=== PATIENT | male | born 1980 | race Hispanic/Latino ===

== ENCOUNTER 2023-10-12 00:41 | Emergency (ER) | payer BC ==
[~2023-10-12] VITALS: Ht 177.8 cm; Wt 98.4 kg
[2023-10-12 01:18] LABS: APPEARANCE,URINE CLEAR (CLEAR); BILIRUBIN,URINE NEGATIVE (NEGATIVE); COLOR,URINE LIGHT-YELLOW (YELLOW); GLUCOSE, URINE (UA) NEGATIVE (NEGATIVE); KETONES,URINE NEGATIVE (NEGATIVE); LEUKOCYTE ESTERASE ,URINE NEGATIVE Leu/uL (NEGATIVE); NITRATE,URINE NEGATIVE (NEGATIVE); OCCULT BLOOD,URINE NEGATIVE (NEGATIVE); PH,URINE 5.5 (5.0-8.0); PROTEIN,URINE 20 mg/dL (NEGATIVE); UROBILINOGEN,URINE 0.2 mg/dL (0.2-1.0)
[2023-10-12 01:22] LABS: ADD UA MICROSCOPIC YES
[2023-10-12 01:23] LABS: BACTERIA,URINE None Seen /HPF (None Seen); RBC,URINE 0-1 /HPF (0-1); SQUAMOUS EPITHELIAL CELL,UR Rare /HPF (0-2)
[2023-10-12 01:24] LABS: MUCUS,URINE Rare LPF (None Seen)
[2023-10-12 01:31] LABS: BASOPHILS # (AUTO) 0.08 K/uL (0.00-0.20); BASOPHILS % (AUTO) 0.6 % (0.0-5.0); EOSINOPHILS # (AUTO) 0.24 K/uL (0.00-0.70); EOSINOPHILS % (AUTO) 1.7 % (0.0-8.0); HEMATOCRIT 51.6 % (42-54); IMMATURE GRANULOCYTE ABSOLUTE 0.05 K/uL (0-1); LYMPHOCYTES # (AUTO) 1.7 K/uL (1.0-4.8); LYMPHOCYTES % (AUTO) 11.6 % (21.0-51.0); MEAN CORPUSCULAR HEMOGLOBIN 29.9 pg (27.0-33.0); MEAN CORPUSCULAR HGB CONC 34.1 g/dL (32.0-36.0); MEAN CORPUSCULAR VOLUME 87.8 fL (79-99); MONOCYTES # (AUTO) 1.1 K/uL (0.1-1.0); MONOCYTES % (AUTO) 7.9 % (3.0-13.0); NEUTROPHILS # (AUTO) 11.2 K/uL (1.8-7.7); NEUTROPHILS % (AUTO) 77.9 % (40.0-77.0); PLATELET COUNT (AUTO) 362 K/uL (130-400); RED BLOOD CELL COUNT(AUTO) 5.88 MIL/uL (4.50-6.20); RED CELL DISTRIBUTION WIDTH 11.9 % (11.0-15.5); WHITE BLOOD COUNT (AUTO) 14.3 K/uL (4.8-10.8)
[2023-10-12 01:44] LABS: CREATININE 1.5 mg/dL (0.5-1.3); POTASSIUM 3.6 mmol/L (3.5-5.1)
[2023-10-12 02:18] LABS: ALBUMIN 4.4 g/dL (3.5-5.0); BILIRUBIN,DIRECT 0.1 mg/dL (0.0-0.3); BILIRUBIN,TOTAL 0.6 mg/dL (0.2-1.0); TOTAL PROTEIN, SERUM 8.3 g/dL (6.0-8.3)
[2023-10-12] MEDS: DICYCLOMINE HCL 10 MG/5 ML ML PO ONE (02:26)
[2023-10-12] MEDS: LACTATED RINGERS 1000ML 1,000 ML IV ONE (02:26)
[2023-10-12] MEDS: LIDOCAINE HCL 2% VISCOUS 15 ML UDCUP PO ONE (02:26)
[2023-10-12] MEDS: ONDANSETRON 4MG INJ IVP ONE (02:26)
[2023-10-12] MEDS: MAG/ALUM/SIMETH 30 ML UDCUP PO ONE (02:26)
[2023-10-12] MEDS: PANTOPRAZOLE 40 MG/VIAL IVP ONE (02:26)
[2023-10-12] MEDS: MORPHINE 4 MG SYG IVP ONE (02:26)
[2023-10-12] MEDS ORDERED: IOHEXOL 350 MG/ML 100ML INFUS..BTL IV ONE (02:37)
[2023-10-12 03:45] VITALS: BP 122/80; PULSE 74; RESP 20; O2SAT 99
== END 2023-10-12 03:52 | disposition home or self-care (01) ==
LOC: EDH 00:41
DX: K90.9 Intestinal malabsorption, unspecified (principal); K52.9 Noninfective gastroenteritis and colitis, unspecified
CPT/HCPCS: 99284; 74177; 82150; 82550; 80076; 84484; 80048; 83690; 85025; 81001; 36415; Q9967; J2270; J2405; J2470; J7120